=== PATIENT | male | born 1980 | race Caucasian/White ===

== ENCOUNTER 2016-10-10 22:11 | Emergency (ER) | payer OTHER ==
[~2016-10-10] VITALS: Ht 180.3 cm; Wt 145.5 kg
[2016-10-10 22:15] VITALS: BP 138/78; TEMP 98.8
[2016-10-10] MEDS ORDERED: GLUCOPHAGE1000 MG PO (22:18)
[2016-10-11 00:11] VITALS: PULSE 88
== END 2016-10-11 00:12 | disposition home or self-care (01) ==
LOC: COL.ER 22:11
DX: S61.012A Laceration without foreign body of left thumb without damage to nail, initial encounter (principal); W26.0XXA Contact with knife, initial encounter; Y93.G1 Activity, food preparation and clean up; Y92.000 Kitchen of unspecified non-institutional (private) residence as the place of occurrence of the external cause; E11.9 Type 2 diabetes mellitus without complications

== ENCOUNTER 2016-11-13 11:47 | Emergency (ER) | payer MEDICAID ==
[~2016-11-13] VITALS: Ht 177.8 cm; Wt 145.5 kg
[~2016-11-13 11:47] MED LIST: GLUCOPHAGE1000 MG PO
[2016-11-13 12:12] LABS: BASO # 0.1 (0.0-0.2); BASO % 0.9 % (0.0-2.0); EOS # 0.3 (0.0-0.7); EOS % 3.3 % (0-4.0); GRAN # 4.1 (1.4-6.5); GRAN % 50.9 % (42.2-75.2); HEMATOCRIT 43.4 % (42.0-52.0); HEMOGLOBIN 15.1 g/dl (13.5-18.0); LYMPH # 2.9 (1.2-3.4); MEAN CELL VOLUME 81 fl (80.0-100.0); MEAN CORPUSCULAR HEMOGLOBIN 28 pg (27.0-31.0); MEAN CORPUSCULAR HGB CONC 35 g/dl (33.0-37.0); MEAN PLATELET VOLUME 9.4 fl (7.4-10.4); MONO # 0.7 (0.1-0.6); MONO % 8.7 % (1.7-9.3); PLATELET COUNT 317 K/mm3 (130-400); RED BLOOD COUNT 5.34 M/mm3 (4.20-5.60); REDCELL DISTRIBUTION WIDTH-CV 13.2 % (11.5-14.5); WHITE BLOOD COUNT 8.1 K/mm3 (4.8-10.8)
[2016-11-13 12:26] LABS: ADJUSTED CALCIUM 9.5 mg/dL (8.4-10.2); ALANINE AMINOTRANSFERASE 37 U/L (21-72); ALBUMIN 4.4 gm/dL (3.5-5.0); ALKALINE PHOSPHATASE 86 U/L (50-136); ANION GAP 18 mmol/L (7-16); BILIRUBIN,TOTAL 0.8 mg/dL (0.0-1.0); BLOOD UREA NITROGEN 15 mg/dL (9-20); CALCIUM 9.8 mg/dL (8.4-10.2); CARBON DIOXIDE 18 mmol/L (22-30); CHLORIDE 103 mmol/L (98-107); CREATININE, serum 0.77 mg/dL (0.66-1.25); GLUCOSE 175 mg/dL (74-106); LIPASE 193 U/L (23-300); POTASSIUM 4.2 mmol/L (3.4-5.0); SODIUM 138 mmol/L (137-145); TOTAL PROTEIN 7.9 gm/dL (6.4-8.2)
[2016-11-13 12:37] LABS: B-TYPE NATRIURETIC PEPTIDE 21 pg/mL (0-125)
[2016-11-13 12:42] LABS: TROPONIN-I < 0.012 ng/mL (0.000-0.034)
[2016-11-13 17:01] VITALS: BP 131/80; PULSE 73
[2016-11-13] MEDS ORDERED: NORCO 325 MG-51 TAB PO (17:48)
[2016-11-13] MEDS ORDERED: FLEXERIL 1010 MG/TAB PO (17:48)
== END 2016-11-13 17:58 | disposition home or self-care (01) ==
LOC: COL.ER 11:47
PROVIDERS: Emergency Medicine
DX: R07.89 Other chest pain (principal); E11.9 Type 2 diabetes mellitus without complications; Z79.84 Long term (current) use of oral hypoglycemic drugs
CPT/HCPCS: J1170; J2060; J7030; Q9967

== ENCOUNTER 2016-11-25 18:50 | Emergency (ER) | payer MEDICAID ==
[~2016-11-25] VITALS: Ht 177.8 cm; Wt 135.9 kg
[~2016-11-25 18:50] MED LIST changes: +FLEXERIL 1010 MG/TAB PO; +NORCO 325 MG-51 TAB PO
[2016-11-25 19:01] VITALS: BP 141/80; PULSE 100; TEMP 98.4
== END 2016-11-25 22:15 | disposition home or self-care (01) ==
LOC: COL.ER 18:50
DX: M79.645 Pain in left finger(s) (principal); M79.89 Other specified soft tissue disorders; W22.8XXA Striking against or struck by other objects, initial encounter; Y92.89 Other specified places as the place of occurrence of the external cause; E11.9 Type 2 diabetes mellitus without complications; Z79.84 Long term (current) use of oral hypoglycemic drugs

== ENCOUNTER 2017-01-26 07:01 | Emergency (ER) | payer MEDICAID ==
[~2017-01-26] VITALS: Ht 177.8 cm; Wt 136.4 kg
[2017-01-26 07:04] VITALS: BP 132/76; TEMP 98.3
[2017-01-26 08:25] LABS: PH 5 (5-8); SQUAMOUS EPITHELIAL None Seen /hpf; URINE APPEARANCE Clear; URINE BACTERIA None Seen /hpf; URINE BILIRUBIN Negative (NEGATIVE); URINE BLOOD 1+ (NEGATIVE); URINE COLOR Yellow; URINE GLUCOSE 2+ (NEGATIVE); URINE KETONE Trace (NEGATIVE); URINE RBC 0-2 /hpf; URINE UROBILINOGEN Negative (NEGATIVE); URINE WBC 0-2 /hpf
[2017-01-26] MEDS ORDERED: LEVAQUIN 5500 MG/TA1 PO (08:27)
[2017-01-26] MEDS ORDERED: PERCOCET 325 MG1 TAB PO (08:27)
[2017-01-26 08:34] VITALS: PULSE 99
== END 2017-01-26 08:35 | disposition home or self-care (01) ==
LOC: COL.ER 07:01
PROVIDERS: Emergency Medicine
DX: N45.1 Epididymitis (principal); Z79.84 Long term (current) use of oral hypoglycemic drugs; Z90.49 Acquired absence of other specified parts of digestive tract

== ENCOUNTER 2017-07-02 11:58 | Emergency (ER) | payer MEDICAID ==
[~2017-07-02] VITALS: Ht 177.8 cm; Wt 138.6 kg
[~2017-07-02 11:58] MED LIST changes: +LEVAQUIN 5500 MG/TA1 PO; +NAPROSYN500 MG PO; +NORCO 325 MG-7.1 TAB PO; +PERCOCET 325 MG1 TAB PO
[2017-07-02 12:18] VITALS: BP 144/104; TEMP 98.3
[2017-07-02] MEDS ORDERED: DIFLUCAN150 MG PO (14:02)
[2017-07-02] MEDS ORDERED: BACTROBAN15 GM TOP (14:02)
[2017-07-02 14:09] VITALS: PULSE 90
[2017-07-02 15:14] LABS: CHLAMYDIA/TRACH by PCR Male NOT DETECTED; Neisseria Gon by PCR Male NOT DETECTED
== END 2017-07-02 14:08 | disposition home or self-care (01) ==
LOC: COL.ER 11:58
PROVIDERS: Physician Assistant
DX: N47.6 Balanoposthitis (principal); E11.9 Type 2 diabetes mellitus without complications; Z79.84 Long term (current) use of oral hypoglycemic drugs

== ENCOUNTER 2017-07-10 14:52 | Emergency (ER) | payer MEDICAID ==
[~2017-07-10] VITALS: Ht 177.8 cm; Wt 136.4 kg
[~2017-07-10 14:52] MED LIST changes: +BACTROBAN15 GM TOP; +DIFLUCAN150 MG PO
[2017-07-10 14:53] VITALS: TEMP 98.1
[2017-07-10] MEDS ORDERED: GLUCOPHAGE500 MG/TAB PO (14:56)
[2017-07-10 15:41] LABS: BASO # 0.1 (0.0-0.2); BASO % 1.2 % (0.0-2.0); EOS # 0.3 (0.0-0.7); EOS % 3.8 % (0-4.0); GRAN # 3.2 (1.4-6.5); GRAN % 46.6 % (42.2-75.2); HEMATOCRIT 43.9 % (42.0-52.0); HEMOGLOBIN 15.4 g/dl (13.5-18.0); LYMPH # 2.3 (1.2-3.4); LYMPH % 33.6 % (20.0-51.0); MEAN CELL VOLUME 83 fl (80.0-100.0); MEAN CORPUSCULAR HEMOGLOBIN 29 pg (27.0-31.0); MEAN CORPUSCULAR HGB CONC 35 g/dl (33.0-37.0); MEAN PLATELET VOLUME 9.7 fl (7.4-10.4); MONO % 14.4 % (1.7-9.3); PLATELET COUNT 283 K/mm3 (130-400); RED BLOOD COUNT 5.29 M/mm3 (4.20-5.60); WHITE BLOOD COUNT 6.8 K/mm3 (4.8-10.8)
[2017-07-10 15:45] LABS: COLLECTION METHOD CLEAN CATCH
[2017-07-10 15:50] LABS: ALBUMIN 4.5 gm/dL (3.5-5.0); BILIRUBIN,TOTAL 0.7 mg/dL (0.0-1.0); CALCIUM 9.4 mg/dL (8.4-10.2); CREATININE, serum 0.84 mg/dL (0.66-1.25); POTASSIUM 3.8 mmol/L (3.4-5.0)
[2017-07-10 15:53] LABS: MUCOUS Present /lpf; PH 5 (5-8); SQUAMOUS EPITHELIAL 0-2 /hpf; URINE APPEARANCE Clear; URINE BACTERIA None Seen /hpf; URINE BILIRUBIN Negative (NEGATIVE); URINE BLOOD 2+ (NEGATIVE); URINE COLOR Yellow; URINE GLUCOSE 3+ (NEGATIVE); URINE KETONE Trace (NEGATIVE); URINE LEUKOCYTE ESTERASE Negative (NEGATIVE); URINE PROTEIN(semi-quant) Negative (NEGATIVE); URINE RBC 0-2 /hpf; URINE UROBILINOGEN Negative (NEGATIVE); URINE WBC 0-2 /hpf
[2017-07-10] MEDS ORDERED: FLEXERIL 1010 MG/TAB PO (16:53)
[2017-07-10 17:38] VITALS: BP 147/94; PULSE 94
== END 2017-07-10 17:45 | disposition home or self-care (01) ==
LOC: COL.ER 14:52
PROVIDERS: Emergency Medicine
DX: R07.89 Other chest pain (principal); Z79.84 Long term (current) use of oral hypoglycemic drugs
CPT/HCPCS: J1170; J1885; J7030

== ENCOUNTER 2017-08-12 17:50 | Emergency (ER) | payer MEDICAID ==
[~2017-08-12] VITALS: Ht 177.8 cm; Wt 125.0 kg
[~2017-08-12 17:50] MED LIST changes: +DOXYCYCLINE 10100 MG PO; +GLUCOPHAGE500 MG/TAB PO
[2017-08-12 17:56] VITALS: BP 143/91; TEMP 98
[2017-08-12 18:30] LABS: BASO # 0.1 (0.0-0.2); EOS # 0.2 (0.0-0.7); EOS % 2.9 % (0-4.0); GRAN # 3.8 (1.4-6.5); GRAN % 54.1 % (42.2-75.2); HEMATOCRIT 44.4 % (42.0-52.0); HEMOGLOBIN 15.4 g/dl (13.5-18.0); LYMPH # 2.3 (1.2-3.4); LYMPH % 32.8 % (20.0-51.0); MEAN CELL VOLUME 84 fl (80.0-100.0); MEAN CORPUSCULAR HEMOGLOBIN 29 pg (27.0-31.0); MEAN CORPUSCULAR HGB CONC 35 g/dl (33.0-37.0); MEAN PLATELET VOLUME 9.6 fl (7.4-10.4); MONO # 0.6 (0.1-0.6); MONO % 8.6 % (1.7-9.3); PLATELET COUNT 304 K/mm3 (130-400); RED BLOOD COUNT 5.28 M/mm3 (4.20-5.60); REDCELL DISTRIBUTION WIDTH-CV 13.3 % (11.5-14.5)
[2017-08-12 18:42] LABS: C-REACTIVE PROTEIN 1.1 mg/dL (0.0-0.9); CALCIUM 9.3 mg/dL (8.4-10.2); CREATININE, serum 0.79 mg/dL (0.66-1.25); POTASSIUM 3.6 mmol/L (3.4-5.0)
[2017-08-12] MEDS ORDERED: DOXYCYCLINE HY100 MG PO ×2 (18:56)
[2017-08-12] MEDS ORDERED: CEPHALEXIN500 M1 PO (18:56)
[2017-08-12 19:45] VITALS: PULSE 109
== END 2017-08-12 19:45 | disposition home or self-care (01) ==
LOC: COL.ER 17:50
PROVIDERS: Emergency Medicine
DX: M79.89 Other specified soft tissue disorders (principal); Z79.84 Long term (current) use of oral hypoglycemic drugs
CPT/HCPCS: J1885

== ENCOUNTER 2017-09-20 06:28 | Day surgery (SDC) | payer MEDICAID ==
[~2017-09-20] VITALS: Ht 175.3 cm; Wt 143.3 kg
[~2017-09-20 06:28] MED LIST changes: +CEPHALEXIN500 M1 PO; +DOXYCYCLINE HY100 MG PO
[2017-09-20 07:16] VITALS: BP 152/93; PULSE 99; TEMP 97.5
[2017-09-20] MEDS ORDERED: GLUCOPHAGE XR500 M1 PO (07:23)
[2017-09-20 09:45] VITALS: BP 114/68; PULSE 110
[2017-09-20] MEDS ORDERED: NORCO 325 MG-51 TAB PO (09:52)
[2017-09-20] MEDS ORDERED: COLACE 100100 MG/CAP PO (09:52)
[2017-09-20] MEDS ORDERED: CEPHALEXIN500 M1 PO (09:53)
[2017-09-20] MEDS ORDERED: BACITRACIN Z500 U/GM TP (09:54)
[2017-09-20 10:00] VITALS: BP 130/89; PULSE 102; TEMP 97.3
[2017-09-20 10:15] VITALS: BP 129/85; PULSE 105
[2017-09-20 10:30] VITALS: BP 129/75; PULSE 99
[2017-09-20 10:50] VITALS: BP 115/74; PULSE 16
== END 2017-09-20 11:10 | disposition home or self-care (01) ==
LOC: SDCO 06:28
DX: N47.1 Phimosis (principal); E10.9 Type 1 diabetes mellitus without complications; E10.40 Type 1 diabetes mellitus with diabetic neuropathy, unspecified; Z79.84 Long term (current) use of oral hypoglycemic drugs; Z87.891 Personal history of nicotine dependence; Z80.9 Family history of malignant neoplasm, unspecified; Z85.820 Personal history of malignant melanoma of skin
CPT/HCPCS: J0690; J1100; J2405; J2704; J3010; J7030

== ENCOUNTER 2017-09-29 12:30 | Emergency (ER) | payer MEDICAID ==
[~2017-09-29] VITALS: Ht 175.3 cm; Wt 142.7 kg
[~2017-09-29 12:30] MED LIST changes: +BACITRACIN Z500 U/GM TP; +COLACE 100100 MG/CAP PO; +GLUCOPHAGE XR500 M1 PO
[2017-09-29 12:33] VITALS: BP 156/95; PULSE 102; TEMP 98.7
== END 2017-09-29 14:10 | disposition home or self-care (01) ==
LOC: COL.ER 12:30
DX: N99.820 Postprocedural hemorrhage of a genitourinary system organ or structure following a genitourinary system procedure (principal); Z98.890 Other specified postprocedural states; Z79.84 Long term (current) use of oral hypoglycemic drugs

== ENCOUNTER 2017-11-09 08:38 | Emergency (ER) | payer MEDICAID ==
[~2017-11-09] VITALS: Ht 177.8 cm; Wt 143.2 kg
[2017-11-09 09:00] VITALS: TEMP 98.1
[2017-11-09 09:25] LABS: BASO # 0.1 (0.0-0.2); BASO % 0.9 % (0.0-2.0); EOS # 0.3 (0.0-0.7); EOS % 4.1 % (0-4.0); GRAN # 3.8 (1.4-6.5); GRAN % 57.9 % (42.2-75.2); HEMATOCRIT 42.4 % (42.0-52.0); HEMOGLOBIN 14.9 g/dl (13.5-18.0); LYMPH # 1.9 (1.2-3.4); LYMPH % 28.5 % (20.0-51.0); MEAN CELL VOLUME 84 fl (80.0-100.0); MEAN CORPUSCULAR HEMOGLOBIN 30 pg (27.0-31.0); MEAN CORPUSCULAR HGB CONC 35 g/dl (33.0-37.0); MEAN PLATELET VOLUME 9.6 fl (7.4-10.4); MONO # 0.5 (0.1-0.6); MONO % 8.1 % (1.7-9.3); PLATELET COUNT 319 K/mm3 (130-400); RED BLOOD COUNT 5.04 M/mm3 (4.20-5.60); REDCELL DISTRIBUTION WIDTH-CV 13.4 % (11.5-14.5)
[2017-11-09 10:42] LABS: ALBUMIN 3.5 gm/dL (3.5-5.0); BILIRUBIN,TOTAL 0.3 mg/dL (0.0-1.0); CALCIUM 8.4 mg/dL (8.4-10.2); CREATININE, serum 0.59 mg/dL (0.66-1.25); TOTAL PROTEIN 6.7 gm/dL (6.4-8.2)
[2017-11-09 11:58] VITALS: BP 120/81; PULSE 80
== END 2017-11-09 12:00 | disposition home or self-care (01) ==
LOC: COL.ER 08:38
PROVIDERS: Emergency Medicine
DX: E11.65 Type 2 diabetes mellitus with hyperglycemia (principal); R51 Headache; Z90.49 Acquired absence of other specified parts of digestive tract; Z87.891 Personal history of nicotine dependence; Z79.84 Long term (current) use of oral hypoglycemic drugs
CPT/HCPCS: J1200; J1815; J2405; J2765; J7030

== ENCOUNTER 2018-01-03 15:11 | Emergency (ER) | payer MEDICAID ==
[~2018-01-03] VITALS: Ht 177.8 cm; Wt 143.2 kg
[2018-01-03 15:13] VITALS: BP 145/84; TEMP 98
[2018-01-03 15:49] LABS: BASO # 0.1 (0.0-0.2); EOS # 0.2 (0.0-0.7); EOS % 2.8 % (0-4.0); GRAN # 3.9 (1.4-6.5); GRAN % 56.6 % (42.2-75.2); HEMOGLOBIN 15.2 g/dl (13.5-18.0); LYMPH # 2.2 (1.2-3.4); LYMPH % 31.8 % (20.0-51.0); MEAN CELL VOLUME 82 fl (80.0-100.0); MEAN CORPUSCULAR HEMOGLOBIN 29 pg (27.0-31.0); MEAN CORPUSCULAR HGB CONC 35 g/dl (33.0-37.0); MEAN PLATELET VOLUME 9.4 fl (7.4-10.4); MONO # 0.5 (0.1-0.6); MONO % 7.4 % (1.7-9.3); PLATELET COUNT 271 K/mm3 (130-400); RED BLOOD COUNT 5.24 M/mm3 (4.20-5.60); REDCELL DISTRIBUTION WIDTH-CV 13.1 % (11.5-14.5)
[2018-01-03 16:10] LABS: BILIRUBIN,TOTAL 0.4 mg/dL (0.0-1.0); C-REACTIVE PROTEIN 1.1 mg/dL (0.0-0.9); CALCIUM 9.2 mg/dL (8.4-10.2); CREATININE, serum 0.64 mg/dL (0.66-1.25); POTASSIUM 3.9 mmol/L (3.4-5.0); TOTAL PROTEIN 7.9 gm/dL (6.4-8.2)
[2018-01-03 16:25] LABS: COLLECTION METHOD CLEAN CATCH
[2018-01-03 16:34] LABS: MUCOUS Present /lpf; PH 5 (5-8); SQUAMOUS EPITHELIAL 0-2 /hpf; URINE APPEARANCE Clear; URINE BACTERIA None Seen /hpf; URINE BILIRUBIN Negative (NEGATIVE); URINE BLOOD 1+ (NEGATIVE); URINE COLOR Yellow; URINE GLUCOSE 1+ (NEGATIVE); URINE KETONE Trace (NEGATIVE); URINE LEUKOCYTE ESTERASE Negative (NEGATIVE); URINE NITRATE Negative (NEGATIVE); URINE PROTEIN(semi-quant) Negative (NEGATIVE); URINE RBC 0-2 /hpf; URINE UROBILINOGEN Negative (NEGATIVE)
[2018-01-03] MEDS ORDERED: ZOFRAN ODT4 MG PO (17:09)
[2018-01-03] MEDS ORDERED: FLEXERIL 1010 MG/TAB PO (17:09)
[2018-01-03] MEDS ORDERED: JANUMXR500-50 PO (17:10)
[2018-01-03 17:26] VITALS: PULSE 76
== END 2018-01-03 17:27 | disposition home or self-care (01) ==
LOC: COL.ER 15:11
PROVIDERS: Emergency Medicine
DX: R53.81 Other malaise (principal); R11.0 Nausea; M54.5 Low back pain; R53.83 Other fatigue; E11.9 Type 2 diabetes mellitus without complications; Z79.84 Long term (current) use of oral hypoglycemic drugs; Z90.49 Acquired absence of other specified parts of digestive tract
CPT/HCPCS: J2270; J2405; J7030

== ENCOUNTER 2018-01-25 19:42 | Emergency (ER) | payer MEDICAID ==
[~2018-01-25] VITALS: Ht 180.3 cm; Wt 134.1 kg
[~2018-01-25 19:42] MED LIST changes: +JANUMXR500-50 PO; +ZOFRAN ODT4 MG PO
[2018-01-25 19:44] VITALS: BP 126/77; TEMP 98.5
[2018-01-25] MEDS ORDERED: LYRICA 75MG CAP75 MG PO (20:06)
[2018-01-25 20:26] VITALS: PULSE 106
== END 2018-01-25 20:27 | disposition home or self-care (01) ==
LOC: COL.ER 19:42
DX: S60.032A Contusion of left middle finger without damage to nail, initial encounter (principal); W23.0XXA Caught, crushed, jammed, or pinched between moving objects, initial encounter; Y92.009 Unspecified place in unspecified non-institutional (private) residence as the place of occurrence of the external cause

== ENCOUNTER 2018-03-11 20:07 | Emergency (ER) | payer MEDICAID ==
[~2018-03-11] VITALS: Ht 177.8 cm; Wt 136.4 kg
[~2018-03-11 20:07] MED LIST changes: +LYRICA 75MG CAP75 MG PO
[2018-03-11 20:13] VITALS: TEMP 98.5
[2018-03-11 20:38] LABS: BASO # 0.1 (0.0-0.2); EOS # 0.4 (0.0-0.7); EOS % 4.1 % (0-4.0); GRAN % 54.6 % (42.2-75.2); HEMATOCRIT 41.1 % (42.0-52.0); LYMPH # 2.7 (1.2-3.4); LYMPH % 29.2 % (20.0-51.0); MEAN CELL VOLUME 85 fl (80.0-100.0); MEAN CORPUSCULAR HEMOGLOBIN 29 pg (27.0-31.0); MEAN CORPUSCULAR HGB CONC 34 g/dl (33.0-37.0); MEAN PLATELET VOLUME 9.5 fl (7.4-10.4); MONO # 0.9 (0.1-0.6); MONO % 10.3 % (1.7-9.3); PLATELET COUNT 308 K/mm3 (130-400); RED BLOOD COUNT 4.83 M/mm3 (4.20-5.60); REDCELL DISTRIBUTION WIDTH-CV 13.2 % (11.5-14.5)
[2018-03-11 20:44] LABS: BILIRUBIN,TOTAL 0.5 mg/dL (0.0-1.0); CALCIUM 8.8 mg/dL (8.4-10.2); CREATININE, serum 0.74 mg/dL (0.66-1.25); POTASSIUM 3.6 mmol/L (3.4-5.0); TOTAL PROTEIN 7.4 gm/dL (6.4-8.2)
[2018-03-11 20:56] LABS: COLLECTION METHOD CLEAN CATCH
[2018-03-11 21:02] LABS: MUCOUS Present /lpf; PH 5 (5-8); SQUAMOUS EPITHELIAL None Seen /hpf; URINE APPEARANCE Clear; URINE BACTERIA None Seen /hpf; URINE BILIRUBIN Negative (NEGATIVE); URINE BLOOD Negative (NEGATIVE); URINE COLOR Yellow; URINE GLUCOSE 1+ (NEGATIVE); URINE KETONE Negative (NEGATIVE); URINE LEUKOCYTE ESTERASE Negative (NEGATIVE); URINE NITRATE Negative (NEGATIVE); URINE PROTEIN(semi-quant) 1+ (NEGATIVE); URINE RBC 0-2 /hpf
[2018-03-11 22:52] VITALS: BP 119/65; PULSE 83
== END 2018-03-11 22:54 | disposition home or self-care (01) ==
LOC: COL.ER 20:07
PROVIDERS: Emergency Medicine
DX: E86.0 Dehydration (principal); E11.9 Type 2 diabetes mellitus without complications; Z90.49 Acquired absence of other specified parts of digestive tract
CPT/HCPCS: J7030

== ENCOUNTER 2018-03-18 10:59 | Emergency (ER) | payer MEDICAID ==
[~2018-03-18] VITALS: Ht 177.8 cm; Wt 136.4 kg
[2018-03-18 11:07] VITALS: BP 147/81; TEMP 97.7
[2018-03-18] MEDS ORDERED: TYLENOL 325MG325 MG PO (11:21)
[2018-03-18] MEDS ORDERED: ADVIL200 MG PO (11:22)
[2018-03-18] MEDS ORDERED: NORCO 325 MG-51 TAB PO (12:18)
[2018-03-18 12:36] VITALS: PULSE 87
== END 2018-03-18 12:30 | disposition home or self-care (01) ==
LOC: COL.ER 10:59
DX: M79.672 Pain in left foot (principal); G62.9 Polyneuropathy, unspecified; F12.90 Cannabis use, unspecified, uncomplicated; Z98.890 Other specified postprocedural states; Z90.49 Acquired absence of other specified parts of digestive tract
CPT/HCPCS: J1885; J2360

== ENCOUNTER 2018-04-03 19:59 | Emergency (ER) | payer MEDICAID ==
[~2018-04-03] VITALS: Ht 177.8 cm; Wt 136.4 kg
[~2018-04-03 19:59] MED LIST changes: +ADVIL200 MG PO; +TYLENOL 325MG325 MG PO
[2018-04-03 20:10] VITALS: BP 144/76; PULSE 110; TEMP 98.4
== END 2018-04-03 20:30 | disposition left against medical advice (07) ==
LOC: COL.ER 19:59
DX: T20.00XA Burn of unspecified degree of head, face, and neck, unspecified site, initial encounter (principal); T31.0 Burns involving less than 10% of body surface; X12.XXXA Contact with other hot fluids, initial encounter

== ENCOUNTER 2018-04-10 14:31 | Emergency (ER) | payer MEDICAID ==
[~2018-04-10] VITALS: Ht 177.8 cm; Wt 136.4 kg
[2018-04-10 14:36] VITALS: BP 132/92; TEMP 98.1
[2018-04-10] MEDS ORDERED: NORCO 325 MG-51 TAB PO (15:29)
[2018-04-10 16:03] VITALS: PULSE 92
== END 2018-04-10 16:03 | disposition home or self-care (01) ==
LOC: COL.ER 14:31
DX: M79.672 Pain in left foot (principal); F12.90 Cannabis use, unspecified, uncomplicated; E11.9 Type 2 diabetes mellitus without complications; Z90.49 Acquired absence of other specified parts of digestive tract; Z98.890 Other specified postprocedural states; W01.0XXA Fall on same level from slipping, tripping and stumbling without subsequent striking against object, initial encounter
CPT/HCPCS: J1885

== ENCOUNTER 2018-04-22 09:01 | Emergency (ER) | payer MEDICAID ==
[~2018-04-22] VITALS: Ht 175.3 cm; Wt 136.4 kg
[2018-04-22 09:04] VITALS: BP 124/77; TEMP 97.9
[2018-04-22] MEDS ORDERED: TYLENOL 500MG500 MG PO (09:08)
[2018-04-22 09:30] LABS: COLLECTION METHOD CLEAN CATCH
[2018-04-22 09:44] LABS: MUCOUS Present /lpf; PH 5 (5-8); SQUAMOUS EPITHELIAL None Seen /hpf; URINE APPEARANCE Clear; URINE BACTERIA None Seen /hpf; URINE BILIRUBIN Negative (NEGATIVE); URINE BLOOD Negative (NEGATIVE); URINE COLOR Yellow; URINE GLUCOSE 3+ (NEGATIVE); URINE KETONE Negative (NEGATIVE); URINE LEUKOCYTE ESTERASE 1+ (NEGATIVE); URINE NITRATE Negative (NEGATIVE); URINE PROTEIN(semi-quant) Negative (NEGATIVE); URINE RBC 0-2 /hpf; URINE UROBILINOGEN Negative (NEGATIVE)
[2018-04-22] MEDS ORDERED: DOXYCYCLINE 10100 MG PO (10:51)
[2018-04-22] MEDS ORDERED: GLUCOTROL 5M5 MG/TAB PO (10:51)
[2018-04-22 11:05] VITALS: PULSE 77
== END 2018-04-22 11:05 | disposition home or self-care (01) ==
LOC: COL.ER 09:01
PROVIDERS: Physician Assistant
DX: N45.1 Epididymitis (principal); E11.9 Type 2 diabetes mellitus without complications; Z90.49 Acquired absence of other specified parts of digestive tract; Z98.890 Other specified postprocedural states; Z87.891 Personal history of nicotine dependence
CPT/HCPCS: J1885

== ENCOUNTER 2018-07-11 10:44 | Emergency (ER) | payer MEDICAID ==
[~2018-07-11] VITALS: Ht 180.3 cm; Wt 127.3 kg
[~2018-07-11 10:44] MED LIST changes: +GLUCOTROL 5M5 MG/TAB PO; +TYLENOL 500MG500 MG PO
[2018-07-11 10:53] VITALS: BP 159/101; TEMP 97.4
[2018-07-11] MEDS ORDERED: CRUTCHES MC (11:27)
[2018-07-11] MEDS ORDERED: NORCO 325 MG-51 TAB PO (11:27)
[2018-07-11 11:57] VITALS: PULSE 99
== END 2018-07-11 11:59 | disposition home or self-care (01) ==
LOC: COL.ER 10:44
DX: S93.401A Sprain of unspecified ligament of right ankle, initial encounter (principal); E11.40 Type 2 diabetes mellitus with diabetic neuropathy, unspecified; F12.10 Cannabis abuse, uncomplicated; Z79.84 Long term (current) use of oral hypoglycemic drugs; Z87.891 Personal history of nicotine dependence; X50.1XXA Overexertion from prolonged static or awkward postures, initial encounter

== ENCOUNTER 2018-08-14 08:03 | Emergency (ER) | payer MEDICAID ==
[~2018-08-14] VITALS: Ht 177.8 cm; Wt 136.4 kg
[~2018-08-14 08:03] MED LIST changes: +CRUTCHES MC
[2018-08-14 08:06] VITALS: TEMP 97.3
[2018-08-14] MEDS ORDERED: LYRICA 75MG CAP75 MG PO (08:13)
[2018-08-14] MEDS ORDERED: BYDUREON B2 MG/0.85 (08:14)
[2018-08-14 08:31] LABS: BASO # 0.1 (0.0-0.2); BASO % 0.8 % (0.0-2.0); EOS # 0.3 (0.0-0.7); EOS % 3.7 % (0-4.0); GRAN # 4.2 (1.4-6.5); GRAN % 59.3 % (42.2-75.2); HEMATOCRIT 43.1 % (42.0-52.0); HEMOGLOBIN 14.5 g/dl (13.5-18.0); LYMPH % 27.9 % (20.0-51.0); MEAN CELL VOLUME 86 fl (80.0-100.0); MEAN CORPUSCULAR HEMOGLOBIN 29 pg (27.0-31.0); MEAN CORPUSCULAR HGB CONC 34 g/dl (33.0-37.0); MEAN PLATELET VOLUME 9.6 fl (7.4-10.4); MONO # 0.6 (0.1-0.6); MONO % 7.9 % (1.7-9.3); PLATELET COUNT 301 K/mm3 (130-400); RED BLOOD COUNT 5.03 M/mm3 (4.20-5.60); REDCELL DISTRIBUTION WIDTH-CV 13.5 % (11.5-14.5)
[2018-08-14 08:39] LABS: BILIRUBIN,TOTAL 0.3 mg/dL (0.0-1.0); CREATININE, serum 0.64 mg/dL (0.66-1.25); POTASSIUM 3.9 mmol/L (3.4-5.0); TOTAL PROTEIN 7.1 gm/dL (6.4-8.2)
[2018-08-14 08:56] LABS: COLLECTION METHOD CLEAN CATCH
[2018-08-14 09:09] LABS: PH 5 (5-8); SQUAMOUS EPITHELIAL None Seen /hpf; URINE APPEARANCE Clear; URINE BACTERIA None Seen /hpf; URINE BILIRUBIN Negative (NEGATIVE); URINE BLOOD Negative (NEGATIVE); URINE COLOR Yellow; URINE GLUCOSE 2+ (NEGATIVE); URINE KETONE Trace (NEGATIVE); URINE LEUKOCYTE ESTERASE Trace (NEGATIVE); URINE NITRATE Negative (NEGATIVE); URINE PROTEIN(semi-quant) Negative (NEGATIVE); URINE RBC 0-2 /hpf; URINE UROBILINOGEN Negative (NEGATIVE); URINE WBC 0-2 /hpf
[2018-08-14] MEDS ORDERED: ZOFRAN ODT8 MG PO (09:33)
[2018-08-14 09:44] VITALS: BP 116/82; PULSE 76
== END 2018-08-14 09:45 | disposition home or self-care (01) ==
LOC: COL.ER 08:03
PROVIDERS: Emergency Medicine
DX: E11.65 Type 2 diabetes mellitus with hyperglycemia (principal); R11.2 Nausea with vomiting, unspecified; R19.7 Diarrhea, unspecified; R51 Headache; F12.10 Cannabis abuse, uncomplicated; Z79.84 Long term (current) use of oral hypoglycemic drugs; Z87.891 Personal history of nicotine dependence
CPT/HCPCS: J1200; J1885; J2405; J2765; J7030

== ENCOUNTER 2018-09-05 15:49 | Emergency (ER) | payer MEDICAID ==
[~2018-09-05] VITALS: Ht 177.8 cm; Wt 136.4 kg
[~2018-09-05 15:49] MED LIST changes: +BYDUREON B2 MG/0.85; +ZOFRAN ODT8 MG PO
[2018-09-05 15:52] VITALS: TEMP 98.5
[2018-09-05] MEDS ORDERED: FLEXERIL 1010 MG/TAB PO (17:18)
[2018-09-05] MEDS ORDERED: NORCO 325 MG-51 TAB PO (17:18)
[2018-09-05 17:32] VITALS: BP 121/85; PULSE 78
== END 2018-09-05 17:32 | disposition home or self-care (01) ==
LOC: COL.ER 15:49
DX: S00.93XA Contusion of unspecified part of head, initial encounter (principal); S20.229A Contusion of unspecified back wall of thorax, initial encounter; E11.40 Type 2 diabetes mellitus with diabetic neuropathy, unspecified; W00.0XXA Fall on same level due to ice and snow, initial encounter; Y92.830 Public park as the place of occurrence of the external cause

== ENCOUNTER 2018-10-03 22:03 | Emergency (ER) | payer MEDICAID ==
[~2018-10-03] VITALS: Ht 177.8 cm; Wt 127.3 kg
[2018-10-03 22:14] VITALS: BP 131/75; TEMP 97.7
[2018-10-04] MEDS ORDERED: NORCO 325 MG-51 TAB PO (00:30)
[2018-10-04] MEDS ORDERED: FLEXERIL 1010 MG/TAB PO (00:30)
[2018-10-04 01:28] VITALS: PULSE 87
== END 2018-10-04 01:29 | disposition home or self-care (01) ==
LOC: COL.ER 22:03
DX: S43.102A Unspecified dislocation of left acromioclavicular joint, initial encounter (principal); F17.210 Nicotine dependence, cigarettes, uncomplicated; W19.XXXA Unspecified fall, initial encounter; Y92.830 Public park as the place of occurrence of the external cause

== ENCOUNTER 2018-10-24 10:29 | Emergency (ER) | payer MEDICAID ==
[~2018-10-24] VITALS: Ht 177.8 cm; Wt 136.4 kg
[2018-10-24 10:31] VITALS: TEMP 98.3
[2018-10-24] MEDS ORDERED: NORCO 325 MG-51 TAB PO (11:04)
[2018-10-24] MEDS ORDERED: CLEOCIN HCL300 MG PO (11:39)
[2018-10-24 11:48] VITALS: BP 131/79; PULSE 85
== END 2018-10-24 11:49 | disposition home or self-care (01) ==
LOC: COL.ER 10:29
DX: K08.89 Other specified disorders of teeth and supporting structures (principal); E11.9 Type 2 diabetes mellitus without complications; F17.290 Nicotine dependence, other tobacco product, uncomplicated; Z79.4 Long term (current) use of insulin

== ENCOUNTER 2018-10-25 08:28 | Emergency (ER) | payer MEDICAID ==
[~2018-10-25] VITALS: Ht 177.8 cm; Wt 136.4 kg
[~2018-10-25 08:28] MED LIST changes: +CLEOCIN HCL300 MG PO
[2018-10-25 08:41] VITALS: TEMP 97.3
[2018-10-25 09:38] VITALS: BP 132/79; PULSE 77
== END 2018-10-25 09:39 | disposition home or self-care (01) ==
LOC: COL.ER 08:28
DX: K02.9 Dental caries, unspecified (principal); E11.40 Type 2 diabetes mellitus with diabetic neuropathy, unspecified; F17.210 Nicotine dependence, cigarettes, uncomplicated; F12.90 Cannabis use, unspecified, uncomplicated
CPT/HCPCS: J1885

== ENCOUNTER 2018-11-04 20:12 | Emergency (ER) | payer MEDICAID ==
[~2018-11-04] VITALS: Ht 177.8 cm; Wt 136.4 kg
[2018-11-04 20:13] VITALS: BP 134/82; TEMP 98.3
[2018-11-04 21:00] VITALS: PULSE 89
== END 2018-11-04 21:00 | disposition home or self-care (01) ==
LOC: COL.ER 20:12
DX: K08.89 Other specified disorders of teeth and supporting structures (principal); F17.290 Nicotine dependence, other tobacco product, uncomplicated; Z90.49 Acquired absence of other specified parts of digestive tract

== ENCOUNTER 2023-08-23 11:58 | Emergency (ER) | payer MEDICAID ==
[~2023-08-23] VITALS: Ht 180.3 cm; Wt 138.6 kg
[2023-08-23 12:41] LABS: BASO # 0.1 K/mm3 (0.0-0.2); BASO % 1.6 % (0.0-2.0); EOS # 0.1 K/mm3 (0.0-0.7); EOS % 2.7 % (0.0-4.0); GRAN # 2.4 K/mm3 (1.4-6.5); GRAN % 47.5 % (42.2-75.2); HEMATOCRIT 44.8 % (42.0-52.0); HEMOGLOBIN 15.7 g/dl (13.5-18.0); LYMPH % 38.9 % (20.0-51.0); MEAN CELL VOLUME 84 fl (80.0-100.0); MEAN CORPUSCULAR HEMOGLOBIN 29 pg (27-31); MEAN CORPUSCULAR HGB CONC 35 g/dl (33.0-37.0); MEAN PLATELET VOLUME 9.2 fl (7.4-10.4); MONO # 0.5 K/mm3 (0.1-0.6); MONO % 8.9 % (1.7-9.3); PLATELET COUNT 283 K/mm3 (130-400); RED BLOOD COUNT 5.34 M/mm3 (4.20-5.60); REDCELL DISTRIBUTION WIDTH-CV 13.1 % (11.5-14.5)
[2023-08-23 12:44] LABS: COLLECTION METHOD CLEAN CATCH
[2023-08-23 12:59] LABS: TRICYCLIC ANTIDEPRESS URINE NEGATIVE (NEGATIVE)
[2023-08-23 13:02] LABS: ACETAMINOPHEN < 7.0 ug/mL (10-30); ALANINE AMINOTRANSFERASE 22 U/L (0-55); ALBUMIN 3.7 gm/dL (3.5-5.0); ALCOHOL(ethanol),MEDICAL 105 mg/dL (0-10); ALKALINE PHOSPHATASE 61 U/L (40-150); ANION GAP 16 mmol/L (7-16); AST,SGOT 18 U/L (5-34); BILIRUBIN,TOTAL 0.4 mg/dL (0.2-1.2); BLOOD UREA NITROGEN 9 mg/dL (9-21); CALCIUM 9.2 mg/dL (8.4-10.2); CARBON DIOXIDE 15 mmol/L (22-29); CHLORIDE 106 mmol/L (98-107); CREATININE, serum 0.81 mg/dL (0.72-1.25); GLUCOSE 299 mg/dL (70-99); POTASSIUM 3.7 mmol/L (3.5-4.5); SALICYLATE < 5.0 mg/dL (15.0-30.0); SODIUM 137 mmol/L (136-145); TOTAL PROTEIN 7.4 gm/dL (6.2-8.1)
[2023-08-23 13:14] LABS: PH 5.5 (5.0-8.5); URINE APPEARANCE Clear (CLEAR/HAZY); URINE BLOOD Negative (NEGATIVE); URINE COLOR YELLOW (YELLOW); URINE GLUCOSE 3+ (NEGATIVE); URINE KETONE 2+ (NEGATIVE); URINE NITRATE Negative (NEGATIVE); URINE PROTEIN(semi-quant) Negative (BEGATIVE); URINE UROBILINOGEN 0.2 E.U/dL (0.2-1.0)
[2023-08-23 13:15] LABS: SQUAMOUS EPITHELIAL 0-2 /hpf (0-10); URINE RBC 0-2 /hpf (0-2)
[2023-08-23] MEDS ORDERED: Ibuprofen 600 MG TAB PO ONE (15:45)
[2023-08-23 17:50] VITALS: BP 161/89; PULSE 86; TEMP 97.9
== END 2023-08-23 17:50 | disposition home or self-care (01) ==
LOC: COL.ER 11:58
PROVIDERS: Nurse Practitioner
DX: S60.812A Abrasion of left wrist, initial encounter (principal); S60.811A Abrasion of right wrist, initial encounter; S50.912A Unspecified superficial injury of left forearm, initial encounter; S50.911A Unspecified superficial injury of right forearm, initial encounter; F10.129 Alcohol abuse with intoxication, unspecified; Y90.2 Blood alcohol level of 40-59 mg/100 ml; Z86.59 Personal history of other mental and behavioral disorders; X78.1XXA Intentional self-harm by knife, initial encounter

== ENCOUNTER 2023-09-11 09:30 | Emergency (ER) | payer MEDICAID ==
[~2023-09-11] VITALS: Ht 177.8 cm; Wt 118.2 kg
[2023-09-11 09:36] VITALS: TEMP 97.6
[2023-09-11] MEDS ORDERED: Ondansetron 4 MG/2 ML VIAL IV ONE (10:00)
[2023-09-11] MEDS ORDERED: LR 1,000 ML IV ONE (10:00)
[2023-09-11 10:11] LABS: COLLECTION METHOD CLEAN CATCH
[2023-09-11 10:17] LABS: URINE APPEARANCE CLEAR (CLEAR/HAZY); URINE BLOOD NEGATIVE (NEGATIVE); URINE COLOR YELLOW (YELLOW); URINE GLUCOSE 3+ (NEGATIVE); URINE KETONE TRACE (NEGATIVE); URINE NITRATE NEGATIVE (NEGATIVE); URINE PROTEIN(semi-quant) NEGATIVE (NEGATIVE); URINE UROBILINOGEN 0.2 E.U/dL (0.2-1.0)
[2023-09-11 10:24] LABS: BASO # 0.1 K/mm3 (0.0-0.2); BASO % 1.1 % (0.0-2.0); EOS # 0.2 K/mm3 (0.0-0.7); GRAN # 2.8 K/mm3 (1.4-6.5); GRAN % 52.2 % (42.2-75.2); HEMATOCRIT 43.5 % (42.0-52.0); HEMOGLOBIN 15.2 g/dl (13.5-18.0); LYMPH # 1.8 K/mm3 (1.2-3.4); LYMPH % 33.9 % (20.0-51.0); MEAN CELL VOLUME 84 fl (80.0-100.0); MEAN CORPUSCULAR HEMOGLOBIN 29 pg (27-31); MEAN CORPUSCULAR HGB CONC 35 g/dl (33.0-37.0); MEAN PLATELET VOLUME 9.4 fl (7.4-10.4); MONO # 0.5 K/mm3 (0.1-0.6); MONO % 9.1 % (1.7-9.3); PLATELET COUNT 284 K/mm3 (130-400); RED BLOOD COUNT 5.19 M/mm3 (4.20-5.60)
[2023-09-11] MEDS ORDERED: Ketorolac 15 MG/ML VIAL IV ONE (10:45)
[2023-09-11 10:59] LABS: ALBUMIN 3.5 gm/dL (3.5-5.0); BILIRUBIN,TOTAL 0.3 mg/dL (0.2-1.2); C-REACTIVE PROTEIN 0.46 mg/dL (0.00-0.50); CALCIUM 9.1 mg/dL (8.4-10.2); CREATININE, serum 0.84 mg/dL (0.72-1.25); POTASSIUM 3.9 mmol/L (3.5-4.5)
[2023-09-11] MEDS ORDERED: Morphine 4 MG/ML VIAL IV ONE (12:00)
[2023-09-11] MEDS ORDERED: Iohexol 300 - 100 ML VIAL IV ONE (12:21)
[2023-09-11] MEDS ORDERED: NS 100 ML IV SCH (12:22)
[2023-09-11] MEDS ORDERED: NORCO 325 MG-51 TAB PO (13:00)
[2023-09-11] MEDS ORDERED: VOLTAREN 75 DR75 MG PO (13:00)
[2023-09-11 13:23] VITALS: BP 123/86; PULSE 65
== END 2023-09-11 13:37 | disposition home or self-care (01) ==
LOC: COL.ER 09:30
PROVIDERS: Family Medicine
DX: R07.89 Other chest pain (principal); R10.9 Unspecified abdominal pain; Z90.49 Acquired absence of other specified parts of digestive tract
CPT/HCPCS: J1885; J2270; J2405; J7120; Q9967

== ENCOUNTER 2023-11-10 10:48 | Emergency (ER) | payer MEDICAID ==
[~2023-11-10] VITALS: Ht 177.8 cm; Wt 121.8 kg
[~2023-11-10 10:48] MED LIST changes: +VOLTAREN 75 DR75 MG PO
[2023-11-10 10:53] VITALS: BP 126/88; TEMP 98.8
[2023-11-10 11:55] VITALS: PULSE 80
== END 2023-11-10 11:56 | disposition home or self-care (01) ==
LOC: COL.ER 10:48
DX: S93.401A Sprain of unspecified ligament of right ankle, initial encounter (principal); S70.01XA Contusion of right hip, initial encounter; F17.210 Nicotine dependence, cigarettes, uncomplicated; W10.9XXA Fall (on) (from) unspecified stairs and steps, initial encounter

== ENCOUNTER 2024-01-20 09:08 | Emergency (ER) | payer MEDICAID ==
[~2024-01-20] VITALS: Ht 180.3 cm; Wt 120.5 kg
[2024-01-20 09:10] VITALS: TEMP 97.2
[2024-01-20] MEDS ORDERED: NS 1,000 ML IV ONE ×2 (10:15→10:30)
[2024-01-20 10:39] LABS: BASO # 0.1 K/mm3 (0.0-0.2); BASO % 1.3 % (0.0-2.0); EOS # 0.2 K/mm3 (0.0-0.7); EOS % 3.4 % (0.0-4.0); GRAN # 2.6 K/mm3 (1.4-6.5); GRAN % 50.1 % (42.2-75.2); HEMATOCRIT 41.8 % (42.0-52.0); HEMOGLOBIN 14.9 g/dl (13.5-18.0); LYMPH # 1.8 K/mm3 (1.2-3.4); LYMPH % 34.9 % (20.0-51.0); MEAN CELL VOLUME 83 fl (80.0-100.0); MEAN CORPUSCULAR HEMOGLOBIN 30 pg (27-31); MEAN CORPUSCULAR HGB CONC 36 g/dl (33.0-37.0); MEAN PLATELET VOLUME 10.2 fl (7.4-10.4); MONO # 0.5 K/mm3 (0.1-0.6); MONO % 9.9 % (1.7-9.3); PLATELET COUNT 270 K/mm3 (130-400); RED BLOOD COUNT 5.03 M/mm3 (4.20-5.60); REDCELL DISTRIBUTION WIDTH-CV 13.1 % (11.5-14.5)
[2024-01-20 10:46] LABS: ALBUMIN 3.6 g/dL (3.5-5.0); BILIRUBIN,TOTAL 0.4 mg/dL (0.2-1.2); CREATININE, serum 0.84 mg/dL (0.72-1.25); TOTAL PROTEIN 7.6 g/dl (6.2-8.1)
[2024-01-20 12:06] VITALS: BP 105/68; PULSE 69
== END 2024-01-20 12:07 | disposition home or self-care (01) ==
LOC: COL.ER 09:08
PROVIDERS: Personal Emergency Response Attendant
DX: G45.9 Transient cerebral ischemic attack, unspecified (principal); E11.9 Type 2 diabetes mellitus without complications; Z87.891 Personal history of nicotine dependence
CPT/HCPCS: J7030

== ENCOUNTER 2024-01-27 05:51 | Inpatient (IN) | payer MEDICAID ==
[~2024-01-27] VITALS: Ht 177.8 cm; Wt 120.5 kg
[2024-01-27] VITALS (535 sets, daily range): BP systolic 112–120; BP diastolic 63–85; PULSE 75–80; TEMP 98–98.1; O2SAT 91–100
[2024-01-27] MEDS ORDERED: Ondansetron 4 MG/2 ML VIAL IV ONE (06:15)
[2024-01-27] MEDS ORDERED: NS 1,000 ML IV ONE ×2 (06:15→09:02)
[2024-01-27 06:21] LABS: COLLECTION METHOD CLEAN CATCH
[2024-01-27 06:25] LABS: BASO # 0.1 K/mm3 (0.0-0.2); BASO % 1.3 % (0.0-2.0); EOS # 0.3 K/mm3 (0.0-0.7); EOS % 4.2 % (0.0-4.0); GRAN # 3.3 K/mm3 (1.4-6.5); GRAN % 55.4 % (42.2-75.2); HEMATOCRIT 44.9 % (42.0-52.0); HEMOGLOBIN 15.6 g/dl (13.5-18.0); LYMPH # 1.7 K/mm3 (1.2-3.4); MEAN CELL VOLUME 85 fl (80.0-100.0); MEAN CORPUSCULAR HEMOGLOBIN 30 pg (27-31); MEAN CORPUSCULAR HGB CONC 35 g/dl (33.0-37.0); MEAN PLATELET VOLUME 9.9 fl (7.4-10.4); MONO # 0.6 K/mm3 (0.1-0.6); MONO % 10.4 % (1.7-9.3); PLATELET COUNT 295 K/mm3 (130-400); RED BLOOD COUNT 5.29 M/mm3 (4.20-5.60)
[2024-01-27 06:28] LABS: URINE APPEARANCE CLEAR (CLEAR/HAZY); URINE BLOOD NEGATIVE (NEGATIVE); URINE COLOR YELLOW (YELLOW); URINE GLUCOSE 3+ (NEGATIVE); URINE KETONE TRACE (NEGATIVE); URINE NITRATE NEGATIVE (NEGATIVE); URINE PROTEIN(semi-quant) NEGATIVE (NEGATIVE); URINE UROBILINOGEN 0.2 E.U/dL (0.2-1.0)
[2024-01-27 06:44] LABS: ACETONE,SERUM NEGATIVE
[2024-01-27 06:51] LABS: ALANINE AMINOTRANSFERASE 28 U/L (0-55); ALBUMIN 3.7 g/dL (3.5-5.0); ALKALINE PHOSPHATASE 66 U/L (40-150); ANION GAP 15 mmol/L (7-16); AST,SGOT 17 U/L (5-34); BILIRUBIN,TOTAL 0.3 mg/dL (0.2-1.2); BLOOD UREA NITROGEN 19 mg/dL (9-21); CALCIUM 9.7 mg/dL (8.4-10.2); CHLORIDE 99 mEq/L (98-107); CREATININE, serum 1.28 mg/dL (0.72-1.25); LIPASE 66 U/L (8-78); POTASSIUM 4.6 mEq/L (3.5-4.5); SODIUM 131 mEq/L (136-145); TOTAL PROTEIN 8.3 g/dl (6.2-8.1)
[2024-01-27 06:54] LABS: GLUCOSE 616 mg/dL (70-99)
[2024-01-27] MEDS ORDERED: Insulin Regular Human (NovoLIN R/HumuLIN R) IV ONE ×3 (07:00→11:00)
[2024-01-27] MEDS ORDERED: LR 1,000 ML IV ONE (07:30)
[2024-01-27] MEDS ORDERED: NS 100 ML IV ONE (07:30)
[2024-01-27] MEDS ORDERED: Iohexol 300 - 100 ML VIAL IV ONE (07:30)
[2024-01-27] MEDS ORDERED: Insulin Human Regular/NS 100 ML IV ONE (08:45)
[2024-01-27] MEDS ORDERED: NS 1,000 ML IV SCH (11:00)
[2024-01-27] MEDS ORDERED: *Potassium Replacement Protocol MC SCH (11:00)
[2024-01-27] MEDS ORDERED: Insulin Human Regular/NS 100 ML IV SCH (11:00)
[2024-01-27] MEDS ORDERED: Insulin Glargine-ygfn (Lantus) SQ ONE (12:45)
[2024-01-27] MEDS ORDERED: Pregabalin 75 MG CAP PO SCH (14:00)
--- NOTE | 2024-01-27 14:14 | NUR ---
SW attempted to see patient to complete initial assessment for discharge planning. Patient sleeping soundly and did not rouse to verbal stimuli. No family present. SW will attempt to meet with patient at a later time.
--- NOTE | 2024-01-27 14:34 | NUR ---
Data: Spiritual care visit attempted during [employer] rounds. Patient was sleeping. Assessment: None at this time. Patient sleeping. Plan of Care: Chaplains will remain available as needed/requested while Patient is admitted to this hospital.
--- NOTE | 2024-01-27 14:50 | NUR ---
SW called and spoke with patient's to complete initial assessment for discharge planning. Patient continues to sleep soundly and does not rouse to verbal stimulation. Leatha ([phone]) verified that they live in [place] with two of their four children. Patient sees Dr. Borja as his PCP and uses [facility] pharmacy. Patient does not have any DME. reports patient is normally active and independent. Patient plans to return home at discharge and will transport. Discharge plan: Home
[2024-01-27] MEDS ORDERED: Insulin Lispro (HumaLOG) SQ SCH (17:00)
--- NOTE | 2024-01-27 20:14 | NUR ---
PT IS SITTING IN BED WATCHING TV. HE IS ALERT AND ORIENTED. IS AT THE BEDSIDE. SOME DISCOMFORT IN HIS ABDOMEN. VOIDING IN A URINAL. ON ROOM AIR. 2 IV SITES, ONE INFUSING NS. CALL AARON AT THE BEDSIDE.
[2024-01-28] VITALS (392 sets, daily range): BP systolic 106–130; BP diastolic 69–87; PULSE 71–78; TEMP 97.6; O2SAT 70–100
[2024-01-28 06:32] LABS: BASO # 0.1 K/mm3 (0.0-0.2); BASO % 1.1 % (0.0-2.0); EOS # 0.3 K/mm3 (0.0-0.7); EOS % 4.1 % (0.0-4.0); GRAN # 2.7 K/mm3 (1.4-6.5); GRAN % 42.7 % (42.2-75.2); HEMATOCRIT 43.4 % (42.0-52.0); HEMOGLOBIN 14.4 g/dl (13.5-18.0); LYMPH # 2.6 K/mm3 (1.2-3.4); LYMPH % 40.9 % (20.0-51.0); MEAN CELL VOLUME 87 fl (80.0-100.0); MEAN CORPUSCULAR HEMOGLOBIN 29 pg (27-31); MEAN CORPUSCULAR HGB CONC 33 g/dl (33.0-37.0); MEAN PLATELET VOLUME 9.8 fl (7.4-10.4); MONO # 0.7 K/mm3 (0.1-0.6); MONO % 10.3 % (1.7-9.3); PLATELET COUNT 252 K/mm3 (130-400); RED BLOOD COUNT 5.02 M/mm3 (4.20-5.60); REDCELL DISTRIBUTION WIDTH-CV 13.3 % (11.5-14.5)
[2024-01-28 06:53] LABS: ALBUMIN 3.1 g/dL (3.5-5.0); CALCIUM 8.3 mg/dL (8.4-10.2); CREATININE, serum 0.76 mg/dL (0.72-1.25); MAGNESIUM 1.7 mg/dL (1.6-2.6); PHOSPHOROUS 3.2 mg/dL (2.3-4.7); POTASSIUM 3.8 mEq/L (3.5-4.5)
[2024-01-28] MEDS ORDERED: Potassium Bicarbonate/Citrate 20 MEQ Effervescent TAB PO ONE (08:45)
[2024-01-28] MEDS ORDERED: Pregabalin 75 MG CAP PO SCH (09:00)
--- NOTE | 2024-01-28 09:49 | NUR ---
PATIENT WAS IN BED RESTING ALERT, AND VERBALIZED HIS ANNOYANCE WITH BEING IN THE HOSPITAL TO ME, AND ASKED IF HE COULD BE DISCHARGED. THIS NURSE TOLD HIM THAT I WOULD SPEAK TO DR. RODRIGUEZ ABOUT THIS. PAIN ASSESSMENT CONDUCTED, AND STATES HIS PAIN IS 8/10 FROM HIS BACK TO HIS LEGS. HE DENIES SENSATION IN FEET AND DEMONSTRATED WEAKNESS IN RIGHT FOOD COMPARED TO THE LEFT. PATIENT HAS NO FLUIDS RUNNING HE IS EATING AND DRINKING, BUT HAS INTS TO R FOREARM AND L AC.
[2024-01-28] MEDS ORDERED: VOLTAREN 75 DR75 MG PO (10:09)
[2024-01-28] MEDS ORDERED: GLUCOTROL10 MG PO (10:35)
[2024-01-28] MEDS ORDERED: LANTUS100 U/ML SQ ×2 (10:36→10:41)
[2024-01-28] MEDS ORDERED: NOVOLOG FLEX100 U/ML SQ (10:41)
[2024-01-29] MEDS ORDERED: TRUE COMFORT P1 EAC1 MC (15:14)
== END 2024-01-28 11:44 | disposition home or self-care (01) | DRG 639 ==
LOC: COL.ER 05:51 → ICU 09:09
PROVIDERS: Emergency Medicine; ADMIT Internal Medicine
DX: E11.65 Type 2 diabetes mellitus with hyperglycemia (principal); Z79.4 Long term (current) use of insulin; E11.40 Type 2 diabetes mellitus with diabetic neuropathy, unspecified; G89.29 Other chronic pain
CPT/HCPCS: J1815; J2405; J7030; J7120; Q9967

== ENCOUNTER 2024-01-29 08:45 | Emergency (ER) | payer MEDICAID ==
[~2024-01-29] VITALS: Ht 177.8 cm; Wt 120.5 kg
[~2024-01-29 08:45] MED LIST changes: +GLUCOTROL10 MG PO; +LANTUS100 U/ML SQ; +NOVOLOG FLEX100 U/ML SQ
[2024-01-29 08:55] VITALS: TEMP 98.2
[2024-01-29] MEDS ORDERED: LR 1,000 ML IV ONE (09:00)
[2024-01-29 09:21] LABS: BASO # 0.1 K/mm3 (0.0-0.2); EOS # 0.3 K/mm3 (0.0-0.7); EOS % 4.8 % (0.0-4.0); GRAN # 2.8 K/mm3 (1.4-6.5); GRAN % 47.7 % (42.2-75.2); HEMATOCRIT 44.4 % (42.0-52.0); LYMPH % 35.1 % (20.0-51.0); MEAN CELL VOLUME 86 fl (80.0-100.0); MEAN CORPUSCULAR HEMOGLOBIN 29 pg (27-31); MEAN CORPUSCULAR HGB CONC 34 g/dl (33.0-37.0); MEAN PLATELET VOLUME 9.4 fl (7.4-10.4); MONO # 0.6 K/mm3 (0.1-0.6); MONO % 10.5 % (1.7-9.3); PLATELET COUNT 260 K/mm3 (130-400); RED BLOOD COUNT 5.18 M/mm3 (4.20-5.60); REDCELL DISTRIBUTION WIDTH-CV 13.1 % (11.5-14.5)
[2024-01-29 09:38] LABS: ALBUMIN 3.4 g/dL (3.5-5.0); BILIRUBIN,TOTAL 0.3 mg/dL (0.2-1.2); C-REACTIVE PROTEIN 0.31 mg/dL (0.00-0.50); CALCIUM 8.8 mg/dL (8.4-10.2); CREATININE, serum 0.71 mg/dL (0.72-1.25); POTASSIUM 3.9 mEq/L (3.5-4.5); TOTAL PROTEIN 6.9 g/dl (6.2-8.1)
[2024-01-29 09:39] LABS: COLLECTION METHOD CLEAN CATCH
[2024-01-29 09:44] LABS: URINE APPEARANCE CLEAR (CLEAR/HAZY); URINE BLOOD NEGATIVE (NEGATIVE); URINE COLOR YELLOW (YELLOW); URINE GLUCOSE 3+ (NEGATIVE); URINE KETONE TRACE (NEGATIVE); URINE NITRATE NEGATIVE (NEGATIVE); URINE PROTEIN(semi-quant) NEGATIVE (NEGATIVE); URINE UROBILINOGEN 0.2 E.U/dL (0.2-1.0)
[2024-01-29] MEDS ORDERED: Ketorolac 15 MG/ML VIAL IV ONE (09:45)
[2024-01-29] MEDS ORDERED: LORazepam 2 MG/ML 1 ML VIAL IV ONE (09:45)
[2024-01-29 11:00] VITALS: BP 112/66; PULSE 79
[2024-01-29] MEDS ORDERED: TRUE COMFORT P1 EAC1 MC (15:14)
== END 2024-01-29 11:13 | disposition home or self-care (01) ==
LOC: COL.ER 08:45
PROVIDERS: Family Medicine
DX: R51.9 Headache, unspecified (principal); E11.9 Type 2 diabetes mellitus without complications; E66.9 Obesity, unspecified; Z68.38 Body mass index [BMI] 38.0-38.9, adult
CPT/HCPCS: J0780; J1885; J2060; J7120